=== PATIENT | female | born 1990 | race Caucasian/White ===

== ENCOUNTER 2023-05-12 10:34 | Outpatient (REF) | payer OTHER, SELFPAY ==
--- NOTE | ~2023-05-12 | XR_ITS ---
EXAMINATION: XR RIGHT ANKLE XR RIGHT FOOT CLINICAL INFORMATION: Right foot and ankle pain. COMPARISON: None TECHNIQUE: AP, lateral and oblique views of the right foot. AP and oblique views of the right ankle. FINDINGS: Alignment is anatomic. Joint spaces are maintained. No displaced fracture or dislocation. Small plantar calcaneal spur. XR/XR foot RT min 3V IMPRESSION: No acute abnormality.
--- NOTE | ~2023-05-12 | XR_ITS ---
EXAMINATION: XR RIGHT ANKLE XR RIGHT FOOT CLINICAL INFORMATION: Right foot and ankle pain. COMPARISON: None TECHNIQUE: AP, lateral and oblique views of the right foot. AP and oblique views of the right ankle. FINDINGS: Alignment is anatomic. Joint spaces are maintained. No displaced fracture or dislocation. Small plantar calcaneal spur. XR/XR ankle RT 2V IMPRESSION: No acute abnormality.
== END 2023-05-12 10:35 | disposition home or self-care (01) ==
LOC: HO.HMGCX 10:34
PROVIDERS: PCP Internal Medicine; Visit Provider Physician Assistant Medical
DX: M25.571 Pain in right ankle and joints of right foot (principal)
CPT/HCPCS: 73600; 73630